=== PATIENT | male | born 1975 | race Two or more races ===

== ENCOUNTER 2019-09-01 17:29 | Emergency (ER) | payer MEDICARE ==
[~2019-09-01] VITALS: Ht 167.6 cm; Wt 91.0 kg
[2019-09-01 17:32] VITALS: BP 119/78
[2019-09-01] MEDS ORDERED: PROPARACAINE OPHTH 0.5%, 15ML ONE (18:03)
[2019-09-01] MEDS ORDERED: FLUORESCEIN OPHTHALMIC 1 MG STRIP ONE (18:03)
--- NOTE | 2019-09-01 18:10 | NUR ---
M IS AT THE BEDSIDE TO ASSESS
== END 2019-09-01 18:26 | disposition home or self-care (01) ==
LOC: ED 18:20
DX: H10.022 Other mucopurulent conjunctivitis, left eye (principal); F17.200 Nicotine dependence, unspecified, uncomplicated; E11.9 Type 2 diabetes mellitus without complications
CPT/HCPCS: 99283

== ENCOUNTER 2020-07-01 09:47 | Emergency (ER) | payer MEDICARE ==
[~2020-07-01] VITALS: Ht 172.7 cm; Wt 92.3 kg
[2020-07-01 09:58] VITALS: BP 116/75
[2020-07-01] MEDS ORDERED: HYDROcodone/APAP 5/325 TABLET PO ONE (10:30)
[2020-07-01] MEDS ORDERED: HYDROcodone/APAP 5/325 TABLET ONE (10:44)
== END 2020-07-01 11:18 | disposition home or self-care (01) ==
LOC: ED 10:50
DX: K08.89 Other specified disorders of teeth and supporting structures (principal); E11.9 Type 2 diabetes mellitus without complications
CPT/HCPCS: 70100; 99283

== ENCOUNTER 2021-06-19 12:14 | Emergency (ER) | payer MEDICARE ==
[~2021-06-19] VITALS: Ht 170.2 cm; Wt 93.0 kg
[2021-06-19 12:15] VITALS: BP 124/73
== END 2021-06-19 15:20 | disposition home or self-care (01) ==
LOC: ED 15:10
DX: S05.02XA Injury of conjunctiva and corneal abrasion without foreign body, left eye, initial encounter (principal); X58.XXXA Exposure to other specified factors, initial encounter; Y93.89 Activity, other specified; Y92.89 Other specified places as the place of occurrence of the external cause; Y99.8 Other external cause status